=== PATIENT | male | born 1950 | race Caucasian/White ===

== ENCOUNTER 2016-06-16 10:40 | Emergency (ER) | payer MEDICARE, OTHER ==
--- NOTE | 2016-06-16 11:20 | ED ---
Upper Extremity HPI - General Chief Complaint: Extremity Injury, Upper Stated Complaint: Lt shoulder injury/[facility] Time Seen by Provider: 06/16/16 10:55 Source: patient, RN notes reviewed Mode of arrival: ambulatory Limitations: no limitations - History of Present Illness Initial Comments: 65-year-old male present emergency Department chief complaint left shoulder pain. Patient states that he was at work yesterday moving some heavy boxes felt a pop in his left shoulder. Patient states ever since then he is been unable to lift up his left arm. Any movement causes increased pain. Patient denies any paresthesias. Patient is right-hand dominant. Patient denies any neck pain. Place: work - Related Data Home Medications Medication Instructions Recorded Confirmed Metoprolol Tartrate [Lopressor] 25 mg PO BID 09/13/13 06/16/16 Ranitidine HCl [Zantac] 150 mg PO BID PRN 09/13/13 06/16/16 Lisinopril [Zestril] 10 mg PO DAILY 12/26/14 06/16/16 Budesonide/Formoterol Fumarate 2 puff INHALATION RT-BID 06/16/16 06/16/16 [Symbicort 160-4.5 Mcg Inhaler] Ibuprofen [Motrin] 400 mg PO Q6HR PRN 06/16/16 06/16/16 Previous Rx's Medication Instructions Recorded Clopidogrel [Plavix] 75 mg PO DAILY #30 tab 09/15/13 Isosorbide Mononitrate ER [Imdur] 60 mg PO DAILY #30 tab.er.24h 09/15/13 Nitroglycerin Sl Tabs [Nitrostat] 0.4 mg SUBLINGUAL Q5M PRN #0 tab 07/26/14 Hydrocodone/Acetaminophen [[place] 1 tab PO Q6HR PRN #15 tab 06/16/16 5-325] Allergies Allergy/AdvReac Type Severity Reaction Status Date / Time No Known Allergies Allergy Verified 06/16/16 11:02 Review of Systems ROS Statement: Those systems with pertinent positive or pertinent negative responses have been documented in the HPI. ROS Other: All systems not noted in ROS Statement are negative. Past Medical History Past Medical History: Chest Pain / Angina, COPD, Hyperlipidemia, Hypertension, Myocardial Infarction (MS), Skin Disorder Additional Past Medical History / Comment(s): psoriasis, arthritis, sob with activity Last Myocardial Infarction Date:: 2003 History of Any Multi-Drug Resistant Organisms: None Reported Past Surgical History: Heart Catheterization With Stent, Tonsillectomy Additional Past Surgical History / Comment(s): parathyroid gland removed Past Anesthesia/Blood Transfusion Reactions: No Reported Reaction Additional Past Anesthesia/Blood Transfusion Reaction / Comment(s): Pt recieved blood for post tonsillectomy bleed at age 12 yrs-no reaction. Date of Last Stent Placement:: 2003 Past Psychological History: No Psychological Hx Reported Additional Psychological History / Comment(s): Pt resides with his spouse. He is independent. He uses no assistive devices. He cannot walk long distances due to SOB. Pt drives. Smoking Status: Current every day smoker Past Alcohol Use History: None Reported Additional Past Alcohol Use History / Comment(s): Pt states he is trying to quit smoking. He started smoking at age 14yrs and was up to about 1 1/2 ppd. He is currently smoking less than a ppd. Past Drug Use History: None Reported - Past Family History Sister(s) Family Medical History: CVA/TIA Father Additional Family Medical History / Comment(s): Father had an enlarged heart. He at age 72 yrs. Mother Family Medical History: No Reported History Additional Family Medical History / Comment(s): Mother at age 82yrs. General Exam Limitations: no limitations General appearance: alert, in no apparent distress Respiratory exam: Present: normal lung sounds bilaterally. Absent: respiratory distress, wheezes, rales, rhonchi, stridor Cardiovascular Exam: Present: regular rate, normal rhythm, normal heart sounds. Absent: systolic murmur, diastolic murmur, rubs, gallop, clicks Extremities exam: Present: other (Left shoulder is some tenderness over the biceps tendon region patient is able to make full bicep with no abnormality. Patient has pain with extension of his left shoulder, abduction. 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 Absent: rash Course Vital Signs 06/16/16 10:49 Temperature 97 F L Pulse Rate 90 Respiratory 20 Rate Blood Pressure 184/96 O2 Sat by Pulse 93 L Oximetry Medical Decision Making - Medical Decision Making 65-year-old male presents emergency Department chief complaint of left shoulder pain. Patient had injury after moving, lifting boxes. Patient appears to have a left rotator cuff injury, left bicipital tendinitis. Patient be discharged follow-up with orthopedics. Disposition Clinical Impression: Injury of left rotator cuff, Biceps tendinitis Disposition: HOME SELF-CARE Condition: Stable Instructions: Rotator Cuff Injury (ED) Additional Instructions: Please return to the Emergency Department if symptoms worsen or any other concerns. Prescriptions: Hydrocodone/Acetaminophen [[place] 5-325] 1 tab PO Q6HR PRN #15 tab PRN Reason: Pain Referrals: Jessica Murray MD [Primary Care Provider] - 1-2 days Lester Youngblood DO [Doctor of Osteopathic Medicine] - 1-2 days Time of Disposition: 11:45
--- NOTE | 2016-06-16 11:31 | XR ---
Left shoulder HISTORY: Injury, pain 3 views of the left shoulder, comparison to CT angiogram of the chest 26 December 2014. Calcification is present along the distribution of the rotator cuff insertion near the level of the g reater tuberosity. Joint space loss present at the glenohumeral joint, some hypertrophic changes pres ent at the glenohumeral joint and acromioclavicular joint. Bone mineralization and alignment are main tained. Left lung apex as visualized is normal. Interstitial lung disease noted. Impression: Osteoarthritis, findings suggest calcific tendinitis. Additional findings above.
[2016-06-16 11:58] VITALS: BP 120/63; PULSE 95; RESP 16; TEMP 97.8
== END 2016-06-16 11:56 | disposition home or self-care (01) ==
LOC: EC 10:40
DX: S46.002A Unspecified injury of muscle(s) and tendon(s) of the rotator cuff of left shoulder, initial encounter (principal); M75.22 Bicipital tendinitis, left shoulder; X50.0XXA Overexertion from strenuous movement or load, initial encounter; Y99.0 Civilian activity done for income or pay; I10 Essential (primary) hypertension; E78.5 Hyperlipidemia, unspecified; J44.9 Chronic obstructive pulmonary disease, unspecified; I20.9 Angina pectoris, unspecified; F17.200 Nicotine dependence, unspecified, uncomplicated; I25.2 Old myocardial infarction; Z95.5 Presence of coronary angioplasty implant and graft; Z79.51 Long term (current) use of inhaled steroids; Z79.02 Long term (current) use of antithrombotics/antiplatelets; Z79.899 Other long term (current) drug therapy
CPT/HCPCS: 99283

== ENCOUNTER 2017-08-05 14:32 | Inpatient (IN) | payer MEDICARE ==
[2017-08-05] MEDS ORDERED: HEPARIN SODIUM,PORCINE 5,000 UNIT/ML 1 ML VIAL IV ONE (21:16)
[2017-08-05] MEDS ORDERED: HEPARIN SODIUM,PORCINE 5,000 UNIT/ML 1 ML VIAL IV PRN (21:16)
[2017-08-05] MEDS ORDERED: HEPARIN SOD,PORK IN 0.45% NACL 25,000 UNIT in 0.45% NACL 1 500ML.BAG IV SCH (21:30)
[2017-08-05 21:40] LABS: Glucose,Whole Blood 119 mg/dL (75-99)
[2017-08-05] MEDS ORDERED: ACETAMINOPHEN TAB 325 MG TAB PO PRN (21:42)
[2017-08-05] MEDS ORDERED: IPRATROPIUM-ALBUTEROL 3 ML NEB INHALATION PRN (21:42)
[2017-08-05] MEDS ORDERED: NITROGLYCERIN SL TABS 0.4 MG TAB SUBLINGUAL PRN (21:46)
[2017-08-05 21:57] VITALS: RESP 18
[2017-08-05 22:01] LABS: HCT 42.4 % (39.0-53.0); HGB 13.5 gm/dL (13.0-17.5); MCH 27.8 pg (25.0-35.0); MCHC 31.9 g/dL (31.0-37.0); Mean Platelet Volume 8.8; Platelet Count 152 k/uL (150-450); RBC 4.87 m/uL (4.30-5.90); RDW 15.6 % (11.5-15.5); WBC 11.7 k/uL (3.8-10.6)
[2017-08-05 22:07] LABS: INR 1.1 (<1.2); Partial Thromboplastin Time 24.4 sec (22.0-30.0); Prothrombin Time 10.8 sec (9.0-12.0)
[2017-08-05 22:12] LABS: Calcium 8.9 mg/dL (8.4-10.2); Potassium 4.5 mmol/L (3.5-5.1)
[2017-08-06 04:07] LABS: Basophils % (A) 0 %; Eosinophils % (A) 0 %; HCT 43.7 % (39.0-53.0); HGB 13.7 gm/dL (13.0-17.5); Lymphocytes # (A) 1.1 k/uL (1.0-4.8); Lymphocytes % (A) 10 %; MCH 27.3 pg (25.0-35.0); MCHC 31.5 g/dL (31.0-37.0); MCV 86.6 fL (80.0-100.0); Mean Platelet Volume 8.7; Monocytes # (A) 0.6 k/uL (0-1.0); Monocytes % (A) 5 %; Neutrophils # (A) 9.4 k/uL (1.3-7.7); Neutrophils % (A) 84 %; Platelet Count 154 k/uL (150-450); RBC 5.04 m/uL (4.30-5.90); RDW 15.5 % (11.5-15.5); WBC 11.2 k/uL (3.8-10.6)
[2017-08-06 04:35] LABS: Anion Gap 12 mmol/L; Blood Urea Nitrogen 32 mg/dL (9-20); Calcium 8.8 mg/dL (8.4-10.2); Carbon Dioxide 21 mmol/L (22-30); Chloride 108 mmol/L (98-107); Glucose 105 mg/dL (74-99); Potassium 4.2 mmol/L (3.5-5.1); Sodium 141 mmol/L (137-145)
[2017-08-06] MEDS: SODIUM CHLORIDE 0.9% 1,000 ML IV SCH ×4 (06:39→21:50)
[2017-08-06] MEDS: INSULIN ASPART 100 UNIT/ML 1 ML 10 ML VIAL SQ SCH ×5 (06:40→21:49)
[2017-08-06] MEDS: ATORVASTATIN 40 MG TAB PO SCH ×2 (06:40→06:45)
[2017-08-06] MEDS: METOPROLOL TARTRATE 25 MG TAB PO SCH ×3 (06:40→21:49)
[2017-08-06] MEDS: NICOTINE 21MG/24HR PATCH TRANSDERM SCH ×2 (06:41→21:50)
[2017-08-06] MEDS: methylPREDNISolone SOD SUCCI 40 MG/ML 1 ML VIAL IV SCH ×3 (06:42→15:58)
[2017-08-06] MEDS: ASPIRIN 81 MG PO SCH (06:42)
[2017-08-06] MEDS: CLOPIDOGREL 75 MG TAB PO SCH (06:43)
[2017-08-06] MEDS: LISINOPRIL 10 MG TAB PO SCH (06:46)
[2017-08-06] MEDS: FAMOTIDINE 20 MG TAB PO SCH (06:46)
[2017-08-06 07:01] LABS: Glucose,Whole Blood 98 mg/dL (75-99)
[2017-08-06] MEDS: ISOSORBIDE MONONITRATE ER 60 MG TAB.ER.24H PO SCH (08:20)
[2017-08-06] MEDS: SYMBICORT 80-4.5 MCG INHALER INHALATION SCH ×2 (08:21→20:59)
[2017-08-06] MEDS ORDERED: MIDAZOLAM 2 MG/2 ML VIAL ONE (10:24)
[2017-08-06] MEDS ORDERED: LIDOCAINE 2% INJ 20 MG/ML (20 ML MDV) ONE (10:25)
[2017-08-06] MEDS ORDERED: VERAPAMIL 2.5 MG/ML 2 ML AMP ONE (10:25)
[2017-08-06] MEDS ORDERED: diphenhydrAMINE 50 MG/ML 1 ML VIAL ONE (10:56)
[2017-08-06] MEDS ORDERED: fentaNYL (PF) 50 MCG/ML 2 ML AMP ONE (10:56)
[2017-08-06] MEDS ORDERED: IV FLUID CONTINUATION 1,000 ML IV ONE (11:01)
[2017-08-06] MEDS ORDERED: diphenhydrAMINE 50 MG/ML 1 ML VIAL IVP ONE (11:10)
[2017-08-06] MEDS ORDERED: fentaNYL (PF) 50 MCG/ML 2 ML AMP IV ONE (11:10)
[2017-08-06] MEDS ORDERED: LIDOCAINE 2% INJ 20 MG/ML SQ ONE (11:14)
[2017-08-06] MEDS ORDERED: VERAPAMIL SYRINGE (5 MG/10 ML) INTRAARTER ONE (11:22)
[2017-08-06] MEDS ORDERED: BIVALIRUDIN BOLUS 250 MG/50 ML IV ONE (11:30)
[2017-08-06] MEDS ORDERED: BIVALIRUDIN 250 MG in SODIUM CHLORIDE 0.9% 50 ML IV ONE ×2 (11:33→12:16)
[2017-08-06] MEDS ORDERED: MORPHINE SULF 5MG/10ML VL ONE (11:48)
[2017-08-06] MEDS ORDERED: MORPHINE SULF 5MG/10ML VL IV ONE (11:52)
[2017-08-06] MEDS ORDERED: FUROSEMIDE 10 MG/ML 4 ML VIAL ONE (12:06)
[2017-08-06] MEDS ORDERED: FUROSEMIDE 10 MG/ML 4 ML VIAL IV ONE ×2 (12:08)
[2017-08-06] MEDS: NITROGLYCERIN 1000MCG/10ML SYRINGE INTRACORON ONE ×2 (12:30→12:33)
[2017-08-06] MEDS ORDERED: IOPAMIDOL-370 125ML BTL INJ ONE (12:36)
[2017-08-06] MEDS ORDERED: MAG HYDROX/AL HYDROX/SIMETH 30 ML CUP PO PRN (12:56)
[2017-08-06] MEDS ORDERED: ZOLPIDEM 5 MG TAB PO PRN (12:56)
[2017-08-06] MEDS ORDERED: NITROGLYCERIN SL TABS 0.4 MG TAB SUBLINGUAL PRN (12:56)
[2017-08-06] MEDS ORDERED: ATROPINE SULFATE 0.1 MG/ML 10ML SYRINGE IV PRN (12:56)
[2017-08-06] MEDS ORDERED: RX INFO: IV CONTRAST WAS GIVEN 1 EACH MISC MISCELLANE PRN (12:56)
[2017-08-06] MEDS ORDERED: ATORVASTATIN 40 MG TAB PO SCH (12:59)
[2017-08-06] MEDS ORDERED: SODIUM CHLORIDE 0.9% 1,000 ML IV SCH (13:00)
[2017-08-06 13:03] LABS: Hemoglobin A1C 5.6 % (4.0-6.0)
[2017-08-06 14:34] VITALS: BMI 32.8
--- NOTE | 2017-08-06 15:53 | PTCA ---
PERCUTANEOUSTRANS CORORONARY ANGIOGRAPHY Mr. Mccloud is a 67-year-old male with known history of coronary artery disease, history of noncompliance and chronic tobacco use, who presented with non ST-segment elevation myocardial infarction, underwent cardiac catheterization, was found to have critical stenosis involving the mid right coronary artery. In view of that, recommendation was made regarding angioplasty and stenting. The procedures, risks and complication were discussed with the patient, who is in full understanding and agreement. PROCEDURE: A 6-Portuguese FR4 guiding catheter was introduced system. After cannulating the right coronary ostium and a 0.014 balance medium weight J-wire was advanced across the lesion and positioned distally. Following that, a 2.5 x 8 mm Trek balloon was advanced and multiple inflations at maximum of 8 atmospheres were done. Following that, the balloon was removed and attempt to advance a 3.0 x 12 mm Xience Alpine stent were unsuccessful. That stent was removed and a GuideLiner was advanced and attempt to advance the 3.0 x 12 mm Xience, 3.0 x 8 mm Xience, 3.0 x 8 vision and a 2.5 x 12 PROMUS stent were unsuccessful. At that point, the GuideLiner was removed and a 0.014 whisper J-wire was advanced next to the first one in a william fashion with a corsair catheter. After advancing the corsair across the lesion, the wire was exchanged to a 0.014 mailman wire and after removing the corsair, attempt to advance the 3.0 x 12 Xience and a 3.0 x 8 Xience over the BMW were unsuccessful. Subsequently, the 3.0 x 8 mm Xience Alpine was advanced over the Mailman and was able to cross the lesion. At that point, the stent was deployed and postdilated at 14 atmospheres. After the last inflation, after appropriate wait, the balloon and the guidewire were withdrawn back in the guiding catheter. Images were obtained and repeated. Those images revealed stable successful stenting. At that point, the guiding catheter, the balloon and guidewire were removed. The sheath was removed. Hemostasis was obtained with deployment of a TR band. There was no immediate complication. Patient is returned to his room in stable condition. Of note, the patient had chest discomfort during the procedure that resolved at the end of the procedure. He received Angiomax per protocol. RESULTS: Successful stenting of the mid right coronary artery in a very calcified and tortuous segment with reduction of stenosis from 99% to 0%. RECOMMENDATION: Patient will be continued on aspirin, Plavix, beta blockers and statin. The importance of compliance and smoking cessation were discussed with the patient and his family who are in full understanding and agreement. Duration of procedure is 88 minutes. DONTE / QASIMN: [id number] /
--- NOTE | 2017-08-06 16:02 | CC ---
CARDIAC CATHETERIZATION REPORT Mr. Mccloud is a 67-year-old male with a known history of coronary artery disease, status post multiple percutaneous revascularizations to the right coronary artery, most recently in 2015, noncompliance, who was not seen in the office since that time, chronic tobacco user who stopped all his medication and presented to [facility] with symptoms of chest discomfort and evidence of non [id number] myocardial infarction. In view of that, recommendation was made regarding cardiac catheterization. The procedure, its risks and complications were discussed with the patient, who was in full understanding and agreement. PROCEDURE: Patient was brought to the laborer [place] in a fasting, semi-sedated state after receiving fentanyl and Benadryl and achieving a moderate conscious sedated state. Using Xylocaine anesthesia and Seldinger technique, a 6-Gibraltarian sheath was introduced in the left radial artery. Selective right and left angiography was performed using 5-Gibraltarian 4 bend right and left Jody catheters. Multiple views were taken of the coronary arteries, including the hemiaxial view. Following that, catheters were removed. Images were reviewed. FINDINGS: 1. LEFT MAIN: This is a large-sized vessel giving rise to a left anterior descending artery. 2. LEFT ANTERIOR DESCENDING ARTERY: This is a large-sized vessel reaching toward the apex with a wrap around the apex segment giving rise to a large diagonal branch. Left anterior descending artery as well as its branches have no evidence of obstructive coronary artery disease. 3. 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 The left circumflex as well as its branches have no evidence of high-grade stenosis. 4. RIGHT CORONARY ARTERY: This is a large dominant vessel bifurcating into PDA, posterolateral segment and branches, heavily calcified in the mid segment. Proximally it has mild disease of 20% to 30%. In the mid segment at the takeoff of the acute marginal there is a 99% stenosis and a very acute bend distally. The stented segment is patent with evidence of in-stent restenosis of 50%. The rest of the vessel has no high-degree stenosis. 5. LEFT VENTRICULOGRAM: Left ventriculogram was not performed. CONCLUSION: 1. Severe stenosis in the mid right coronary artery. 2. Moderate in-stent restenosis in the distal right coronary artery. 3. 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 RECOMMENDATION: In view of findings and anatomy, I have recommended proceeding with angioplasty and stenting. The procedure, its risks and complications were discussed with the patient, who is in full understanding and agreement. MMODL / IJN: [id number] /
--- NOTE | 2017-08-06 16:12 | P.HPIM ---
History of Present Illness H&P Date: 08/06/17 Chief Complaint: Chest pain transferred from [facility] This is a pleasant 67-year-old Jamin patient of Dr. Seth Sanchez, with underlying history of CAD with prior RI prior angioplasty and cardiac stents in 2014, elevated creatinine, noncompliance medications for at least a year., tobacco dependency, COPD, hypertension, hyperlipidemia, status post AAA repair transferred from [facility] secondary to acute non STEMI. He was seen by Dr. GEO freitas at that time, and recommended a cardiac cath and was subsequently transferred. He was treated at the other hospital. COPD exacerbation and tracheo bronchitis patient is currently a smoker, there is no O2 requirements at home. creatinine is elevated on admission at 1.3, patient required hydration in preparation for the current cardiac cath,, the peak troponin was 0.6, he also has elevated blood pressure as the patient missed several of his home maintenance medications for several months. Cardiac cath performed today, patient required 2 cardiac stents left radial access, formal report is currently pending. Saline is refusing for contrast prophylaxis, Solu-Medrol infusing at 40 mg every 8 hours, patient's doing well without any chest discomfort, no shortness of breath, no palpitations no lightheadedness, dizziness, Review of Systems Constitutional: Reports as per HPI, Denies anorexia, Denies chills, Denies chronic headaches, Denies chronic pain, Denies daytime sleepiness, Denies fatigue, Denies fever, Denies lethargy, Denies malaise, Denies night sweats, Denies poor appetite, Denies sweats, Denies weakness, Denies weight gain, Denies weight loss Ears, nose, mouth and throat: Reports as per HPI, Denies ant. neck pain, Denies bleeding gums, Denies dental pain, Denies dysphagia, Denies epistaxis, Denies headache, Denies hoarseness, Denies mouth pain, Denies nasal congestion, Denies nasal discharge, Denies neck fullness/pressure, Denies neck lump, Denies nose pain, Denies odynophagia, Denies post-nasal drip, Denies sinus pain, Denies sinus pressure, Denies swelling in mouth, Denies swelling in throat, Denies sore throat, Denies vertigo, Denies voice changes Cardiovascular: Reports as per HPI, Reports chest pain, Reports dyspnea on exertion, Reports shortness of breath, Denies claudication, Denies decreased exercise tolerance, Denies edema, Denies high blood pressure, Denies irregular heart beat, Denies leg edema, Denies lightheadedness, Denies orthopnea, Denies palpitations, Denies paroxysmal nocturnal dyspnea, Denies phlebitis, Denies rapid heart beat, Denies syncope Respiratory: Reports as per HPI, Reports cough, Reports dyspnea, Denies congestion, Denies cough with sputum, Denies excessive sputum, Denies hemoptysis , Denies home oxygen, Denies pain, Denies pain on inspiration, Denies pleurisy, Denies respiratory infections, Denies sleep apnea, Denies snoring, Denies wheezing Gastrointestinal: Reports as per HPI, Denies abdominal pain, Denies belching, Denies bloating, Denies BRBPR, Denies change in bowel habits, Denies coffee ground emesis, Denies constipation, Denies diarrhea, Denies dyspepsia, Denies early satiety, Denies excessive gas, Denies heartburn, Denies hematemesis, Denies hematochezia, Denies indigestion, Denies jaundice, Denies lactose intolerance, Denies loss of appetite, Denies melena, Denies nausea, Denies vomiting Integumentary: Reports as per HPI, Denies acne, Denies boils, Denies brittle nails, Denies change in hair/nails, Denies color changes, Denies darkening of skin, Denies depigmentation, Denies dryness, Denies foot/leg ulcers, Denies growths, Denies hirsutism, Denies lesions, Denies onychomycosis, Denies pruritus , Denies rash, Denies sores, Denies striae, Denies unusual bruising, Denies wounds Neurological: Reports as per HPI, Denies aphasia, Denies ataxia, Denies balance difficulties, Denies burning pain, Denies change in mentation, Denies change in smell/taste, Denies change in speech, Denies confusion, Denies convulsions, Denies double vision, Denies gait dysfunction, Denies head injury, Denies headaches, Denies hearing difficulties, Denies lack of coordination, Denies loss of vision, Denies memory loss, Denies migraines, Denies motor disturbance, Denies numbness, Denies paralysis, Denies paresthesias, Denies seizures, Denies sensory deficit, Denies spasticity, Denies syncope, Denies tic, Denies tingling , Denies transient paralysis, Denies tremors, Denies vertigo, Denies weakness, Denies visual changes Psychiatric: Reports as per HPI, Denies anhedonia, Denies anxiety, Denies anxiety attacks, Denies change in appetite, Denies change in libido, Denies change in sleep habits, Denies confusion, Denies depression, Denies difficulty concentrating, Denies disorientation, Denies hallucinations, Denies hopelessness , Denies hypersomnia, Denies insomnia, Denies irritability, Denies memory loss, Denies mood swings, Denies paranoia, Denies sadness/tearfulness, Denies sleep disturbances, Denies suicidal ideation Endocrine: Reports as per HPI, Denies cold intolerance, Denies deepening of the voice, Denies excessive sweating, Denies excessive thirst, Denies fatigue, Denies flushing, Denies heat intolerance, Denies high blood sugars, Denies increase in ring/shoe/hat size, Denies low blood sugars, Denies nocturia, Denies palpitations, Denies polydipsia, Denies polyphagia, Denies polyuria, Denies proptosis, Denies recent glucocorticoid use, Denies thyroid mass, Denies weight change Hematologic/Lymphatic: Reports as per HPI, Denies easy bleeding, Denies easy bruising, Denies lymphadenopathy, Denies lymphedema, Denies thrombophilia Allergic/Immunologic: Reports as per HPI, Denies allergic rhinitis, Denies anaphylaxis, Denies angioedema, Denies gluten intolerance, Denies persistent infections, Denies seasonal allergies, Denies urticaria, Denies wheezing Past Medical History Past Medical History: Chest Pain / Angina, COPD, Hyperlipidemia, Hypertension, Myocardial Infarction (RI), Skin Disorder Additional Past Medical History / Comment(s): psoriasis, arthritis, sob with activity Last Myocardial Infarction Date:: 2003 History of Any Multi-Drug Resistant Organisms: None Reported Past Surgical History: Heart Catheterization With Stent (Angioplasty with cardiac stent 2014, descending aortic aneurysm repair with stents), Tonsillectomy Additional Past Surgical History / Comment(s): parathyroid gland removed Past Anesthesia/Blood Transfusion Reactions: No Reported Reaction Additional Past Anesthesia/Blood Transfusion Reaction / Comment(s): Pt recieved blood for post tonsillectomy bleed at age 12 yrs-no reaction. Date of Last Stent Placement:: 2003 Past Psychological History: No Psychological Hx Reported Additional Psychological History / Comment(s): Pt resides with his spouse. He is independent. He uses no assistive devices. He cannot walk long distances due to SOB. Pt drives. Smoking Status: Current every day smoker (One pack per day since his teenage years) Past Alcohol Use History: None Reported Additional Past Alcohol Use History / Comment(s): Pt states he is trying to quit smoking. He started smoking at age 14yrs and was up to about 1 1/2 ppd. He is currently smoking less than a ppd. Past Drug Use History: None Reported - Past Family History Sister(s) Family Medical History: CVA/TIA Additional Family Medical History / Comment(s): Mother at 92 secondary to CAD, mother 72, CAD 2 sisters one from CVA, has COPD, one sister alive , with CVA 2 brothers one from COPD, 1 alive with COPD and problems from MVA, 2 daughters 1 with cardiac arrhythmia Father Additional Family Medical History / Comment(s): Father had an enlarged heart. He at age 72 yrs. Mother Family Medical History: No Reported History Additional Family Medical History / Comment(s): Mother at age 82yrs. Medications and Allergies Home Medications Medication Instructions Recorded Confirmed Type Ranitidine HCl [Zantac] 150 mg PO BID PRN 09/13/13 08/05/17 History Nitroglycerin Sl Tabs [Nitrostat] 0.4 mg SUBLINGUAL Q5M PRN #0 tab 07/26/14 Rx Budesonide/Formoterol Fumarate 2 puff INHALATION RT-BID 06/16/16 08/05/17 History [Symbicort 160-4.5 Mcg Inhaler] Albuterol Inhaler [Ventolin Hfa 2 puff INHALATION RT-Q6H PRN 08/05/17 08/05/17 History Inhaler] Aspirin EC [Ecotrin Low Dose] 81 mg PO DAILY 08/05/17 08/05/17 History Magnesium 200 mg PO DAILY 08/05/17 08/05/17 History Allergies Allergy/AdvReac Type Severity Reaction Status Date / Time No Known Allergies Allergy Verified 06/16/16 11:02 Physical Exam Vitals: Vital Signs Temp Pulse Pulse Resp BP Pulse Ox 08/06/17 14:11 134/85 08/06/17 13:41 133/78 08/06/17 13:26 132/79 08/06/17 13:11 66 18 156/85 95 08/06/17 08:00 97.1 F L 68 18 140/88 97 08/06/17 06:19 96.7 F L 74 18 163/76 99 08/06/17 04:00 96.8 F L 74 18 163/75 99 08/06/17 00:00 96.8 F L 89 18 171/87 94 L 08/05/17 21:03 97.8 F 82 18 148/77 96 Intake and Output 08/06/17 08/06/17 08/06/17 06:59 14:59 22:59 Intake Total 102.026 251 Output Total 525 Balance 102.026 -274 Intake: IV 251 Intake, IV Titration 102.026 Amount Heparin Sod,Pork in 0.45% 102.026 NaCl 25,000 unit In 0.45 % NaCl 1 500ml.bag @ 9.6 UNITS/KG/HR 19.94 mls/hr IV .Q24H CHAS Rx#: [id number] Output: Urine 525 Other: Voiding Method Toilet Urinal # Voids 1 Weight 103.9 kg 103.9 kg - Constitutional General appearance: cooperative, disheveled, no acute distress, obese - EENT Eyes: anicteric sclerae, EOMI, PERRLA, dentition normal, normal appearance ENT: NA/AT, normal oropharynx - Neck Neck: no lymphadenopathy, normal ROM, no other, no rigidity, no stridor, no thyromegaly - Respiratory Respiratory: bilateral: CTA, negative: diminished, dullness, rales - Cardiovascular Rhythm: regular Heart sounds: normal: S1, S2 Abnormal Heart Sounds: no systolic murmur, no diastolic murmur, no rub, no S3 Gallop, no S4 Gallop, no click, no other - Gastrointestinal General gastrointestinal: normal bowel sounds, soft - Integumentary Integumentary: decreased turgor, normal - Musculoskeletal Musculoskeletal: gait normal, strength equal bilaterally - Psychiatric Psychiatric: A&O x's 3, appropriate affect, intact judgment & insight Results CBC & Chem 7: 08/06/17 03:52 08/06/17 03:52 Labs: Abnormal Lab Results - Last 24 Hours (Table) 08/05/17 08/05/17 08/05/17 Range/Units 21:38 21:43 21:43 WBC 11.7 H (3.8-10.6) k/uL RDW 15.6 H (11.5-15.5) % Neutrophils # (1.3-7.7) k/uL APTT (22.0-30.0) sec Chloride (98-107) mmol/L Carbon Dioxide (22-30) mmol/L BUN 30 H (9-20) mg/dL Glucose 137 H (74-99) mg/dL POC Glucose (mg/dL) 119 H (75-99) mg/dL 08/06/17 08/06/17 08/06/17 Range/Units 03:52 03:52 03:56 WBC 11.2 H (3.8-10.6) k/uL RDW (11.5-15.5) % Neutrophils # 9.4 H (1.3-7.7) k/uL APTT 31.3 H (22.0-30.0) sec Chloride 108 H (98-107) mmol/L Carbon Dioxide 21 L (22-30) mmol/L BUN 32 H (9-20) mg/dL Glucose 105 H (74-99) mg/dL POC Glucose (mg/dL) (75-99) mg/dL Laboratory Results WBC 11.2 k/uL (3.8-10.6) H 08/06/17 03:52 RBC 5.04 m/uL (4.30-5.90) 08/06/17 03:52 Hgb 13.7 gm/dL (13.0-17.5) 08/06/17 03:52 Hct 43.7 % (39.0-53.0) 08/06/17 03:52 MCV 86.6 fL (80.0-100.0) 08/06/17 03:52 MCH 27.3 pg (25.0-35.0) 08/06/17 03:52 MCHC 31.5 g/dL (31.0-37.0) 08/06/17 03:52 RDW 15.5 % (11.5-15.5) 08/06/17 03:52 Plt Count 154 k/uL (150-450) 08/06/17 03:52 Neutrophils % 84 % 08/06/17 03:52 Lymphocytes % 10 % 08/06/17 03:52 Monocytes % 5 % 08/06/17 03:52 Eosinophils % 0 % 08/06/17 03:52 Basophils % 0 % 08/06/17 03:52 Neutrophils # 9.4 k/uL (1.3-7.7) H 08/06/17 03:52 Lymphocytes # 1.1 k/uL (1.0-4.8) 08/06/17 03:52 Monocytes # 0.6 k/uL (0-1.0) 08/06/17 03:52 Eosinophils # 0.0 k/uL (0-0.7) 08/06/17 03:52 Basophils # 0.0 k/uL (0-0.2) 08/06/17 03:52 PT 10.8 sec (9.0-12.0) 08/05/17 21:39 INR 1.1 (<1.2) 08/05/17 21:39 APTT 31.3 sec (22.0-30.0) H 08/06/17 03:56 Sodium 141 mmol/L (137-145) 08/06/17 03:52 Potassium 4.2 mmol/L (3.5-5.1) 08/06/17 03:52 Chloride 108 mmol/L (98-107) H 08/06/17 03:52 Carbon Dioxide 21 mmol/L (22-30) L 08/06/17 03:52 Anion Gap 12 mmol/L 08/06/17 03:52 BUN 32 mg/dL (9-20) H 08/06/17 03:52 Creatinine 0.93 mg/dL (0.66-1.25) 08/06/17 03:52 Est GFR (CKD-EPI)AfAm >90 (>60 ml/min/1.73 sqM) 08/06/17 03:52 Est GFR (CKD-EPI)NonAf 84 (>60 ml/min/1.73 sqM) 08/06/17 03:52 Glucose 105 mg/dL (74-99) H 08/06/17 03:52 POC Glucose (mg/dL) 98 mg/dL (75-99) 08/06/17 06:41 POC Glu Configuration Management Specialist Slime Steele 08/06/17 06:[address] Glu mg/dL 114 08/06/17 03:52 Hemoglobin A1c 5.6 % (4.0-6.0) 08/06/17 03:52 Calcium 8.8 mg/dL (8.4-10.2) 08/06/17 03:52 NT-Pro-B Natriuret Pep 1680 pg/mL 08/06/17 03:52 Thrombosis Risk Factor Assmnt - DVT/VTE Prophylaxis DVT/VTE Prophylaxis: Pharmacologic Prophylaxis ordered - Choose All That Apply Any of the Below Risk Factors Present?: Yes Each Factor Represents 1 point: Oral contraceptives or hormone replacement therapy Other Risk Factors: Yes Each Risk Factor Represents 2 Points: Age 61-74 years Thrombosis Risk Factor Assessment Total Risk Factor Score: 3 Thrombosis Risk Factor Assessment Level: Moderate Risk Assessment and Plan Plan: 1. Acute NSTEMI with known history of noncompliance and CAD cardiac stents in the past, required cardiac catheterization on 08/06/2017 today, formal reports of following cardiac cath. Patient's continue on Imdur 60 mg daily, Zestril 10 mg daily, Lopressor 25 mg twice a day, smoking cessation with nicotine, Lipitor 80 mg daily, Plavix 75 mg daily and aspirin 81 mg daily. --Echocardiogram performed 2017 at [facility] shows EF 55 -60%, left atrium borderline the dilated, no wall motion abnormality, systolic function is normal, aortic valve sclerosis without stenosis, no pedal physician , pulmonary problems normal, tricuspid valve normal --Computed tomography scan performed [facility], 08/04/2017, COPD with peripheral bilateral upper lung fibrosis, no suspicious acute pulmonary processes, coronary artery calcification present, no suspicious validation of the thoracic aorta no dissection --Computed tomography scan abdomen with angiogram, [facility] shows m "near complete occlusion right external iliac artery, severe stenosis of the internal iliac artery but it is still patent, complete occlusion of the origin of the left common iliac with no flow seen in the left internal/external iliac arteries 2. COPD with acute exacerbation, improving, on nebulized albuterol Atrovent, tapering off Solu-Medrol 40 mg every 8 hours, we'll switch to oral prednisone in the morning and 40 mg, oral antibiotic zithromax for tracheobronchtiis 3. Known CAD, with prior angioplasty and cardiac stents in the past 4 Severe PAD, iliac vessels bilaterally, see above dictation, patient would need further investigations for this, either to be done by the cardiology service, however this could be deferred to outpatient to vascular surgery currently without any significant claudication 5. Hyperlipidemia, Lipitor 80, left LDL 73 triglyceride 104 08/04/2017 6 Hypertension currently on Lopressor 25 mg twice a day, and Imdur 60 mg daily, lisinopril 10 mg daily, Tobacco dependency, 7 Acute kidney failure most likely secondary to ATN, underlying CK D stage II after hydration 8 Impaired random blood sugars, A1c 5.6 9 BMI of 32, white cell modification 10 History of AAA repair. Cardiac dissection from computed tomography scan performed July 2017 11. Noncompliance mentioned regimen, patient is now more conscientious about medication compliance and quitting permanently his tobacco dependency 12. GI prophylaxis Pepcid 13. DVT prophylaxis heparin drip discontinued, will start Lovenox in the morning and 40 mg daily
[2017-08-06] MEDS ORDERED: DOCUSATE 100 MG CAP PO PRN (16:13)
[2017-08-06 16:47] LABS: Glucose,Whole Blood 90 mg/dL (75-99)
[2017-08-06] MEDS: CEPHALEXIN 500 MG CAP PO SCH ×2 (17:03→21:50)
[2017-08-06 20:54] LABS: Glucose,Whole Blood 163 mg/dL (75-99)
[2017-08-07 06:03] LABS: Glucose,Whole Blood 98 mg/dL (75-99)
[2017-08-07 06:56] LABS: Calcium 8.8 mg/dL (8.4-10.2); Potassium 4.6 mmol/L (3.5-5.1)
[2017-08-07] MEDS: SODIUM CHLORIDE 0.9% 1,000 ML IV SCH (07:01)
[2017-08-07] MEDS: INSULIN ASPART 100 UNIT/ML 1 ML 10 ML VIAL SQ SCH ×2 (07:01→12:05)
[2017-08-07] MEDS: ASPIRIN 81 MG PO SCH (08:26)
[2017-08-07] MEDS: CLOPIDOGREL 75 MG TAB PO SCH (08:26)
[2017-08-07] MEDS: CEPHALEXIN 500 MG CAP PO SCH (08:26)
[2017-08-07] MEDS: ISOSORBIDE MONONITRATE ER 60 MG TAB.ER.24H PO SCH (08:27)
[2017-08-07] MEDS: LISINOPRIL 10 MG TAB PO SCH (08:27)
[2017-08-07] MEDS: METOPROLOL TARTRATE 25 MG TAB PO SCH (08:27)
[2017-08-07] MEDS: FAMOTIDINE 20 MG TAB PO SCH (08:27)
[2017-08-07] MEDS: SYMBICORT 80-4.5 MCG INHALER INHALATION SCH (08:55)
[2017-08-07] MEDS ORDERED: predniSONE 20 MG TAB PO SCH (09:00)
[2017-08-07] MEDS ORDERED: ENOXAPARIN 40 MG/0.4 ML SYRINGE SQ SCH (09:00)
--- NOTE | 2017-08-07 11:13 | P.DS ---
Providers Date of admission: 08/05/17 20:53 Attending physician: Joann Mitchell Consults: 08/05/17 21:17 Consult Physician Routine Consulting Provider: Fabiola Ortiz Consult Reason/Comments: heart cath Do you want consulting provider notified?: Yes Placement Type Exists?: Yes 08/06/17 12:56 Consult Physician Routine Consulting Provider: [facility] Consult Reason/Comments: Post Interventional patient Do you want consulting provider notified?: Already Contacted Primary care physician: Joannbrad Mitchell [facility] Course: This is 67 years old male who presented to the hospital with chest pain patient was evaluated by cardiology and cardiac catheterization was done which showed 99% stenosis to the RCA patient received drug-eluting stent to RCA and was started on aspirin and Plavix and statin and other cardioprotective medication. 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 and need to follow-up with primary care physician in 3 days patient felt stable from the medical standpoint and was discharged home to follow-up as above Plan - Discharge Summary New Discharge Prescriptions: New Aspirin 81 mg PO DAILY chew Atorvastatin [Lipitor] 80 mg PO DAILY #30 tab Clopidogrel [Plavix] 75 mg PO DAILY #30 tab Isosorbide Mononitrate ER [Imdur] 60 mg PO DAILY #30 tab.er.24h Lisinopril [Zestril] 10 mg PO DAILY #30 tab Metoprolol Tartrate [Lopressor] 25 mg PO BID #60 tab Nicotine 21Mg/24Hr Patch [Habitrol] 1 patch TRANSDERM HS #15 patch Continue Ranitidine HCl [Zantac] 150 mg PO BID PRN PRN Reason: Heartburn Nitroglycerin Sl Tabs [Nitrostat] 0.4 mg SUBLINGUAL Q5M PRN #0 tab PRN Reason: Chest Pain Budesonide/Formoterol Fumarate [Symbicort 160-4.5 Mcg Inhaler] 2 puff INHALATION RT-BID Magnesium 200 mg PO DAILY Aspirin EC [Ecotrin Low Dose] 81 mg PO DAILY Albuterol Inhaler [Ventolin Hfa Inhaler] 2 puff INHALATION RT-Q6H PRN PRN Reason: Shortness Of Breath Discharge Medication List Ranitidine HCl [Zantac] 150 mg PO BID PRN 09/13/13 [History] Nitroglycerin Sl Tabs [Nitrostat] 0.4 mg SUBLINGUAL Q5M PRN #0 tab 07/26/14 [Rx] Budesonide/Formoterol Fumarate [Symbicort 160-4.5 Mcg Inhaler] 2 puff INHALATION RT-BID 06/16/16 [History] Albuterol Inhaler [Ventolin Hfa Inhaler] 2 puff INHALATION RT-Q6H PRN 08/05/17 [ History] Aspirin EC [Ecotrin Low Dose] 81 mg PO DAILY 08/05/17 [History] Magnesium 200 mg PO DAILY 08/05/17 [History] Aspirin 81 mg PO DAILY chew 08/07/17 [Rx] Atorvastatin [Lipitor] 80 mg PO DAILY #30 tab 08/07/17 [Rx] Clopidogrel [Plavix] 75 mg PO DAILY #30 tab 08/07/17 [Rx] Isosorbide Mononitrate ER [Imdur] 60 mg PO DAILY #30 tab.er.24h 08/07/17 [Rx] Lisinopril [Zestril] 10 mg PO DAILY #30 tab 08/07/17 [Rx] Metoprolol Tartrate [Lopressor] 25 mg PO BID #60 tab 08/07/17 [Rx] Nicotine 21Mg/24Hr Patch [Habitrol] 1 patch TRANSDERM HS #15 patch 08/07/17 [Rx] Follow up Appointment(s)/Referral(s): Joann Mitchell MD [Primary Care Provider] - 1 Week Discharge Disposition: HOME SELF-CARE
[2017-08-07 11:59] LABS: Glucose,Whole Blood 103 mg/dL (75-99)
[2017-08-07 12:33] VITALS: BP 139/82; PULSE 67; TEMP 97.1
--- NOTE | 2017-08-07 14:27 | PN ---
PROGRESS NOTE Mr. Mccloud is a 76-year-old male with a history of coronary artery disease, chronic tobacco use, noncompliance who presented with a non ST-segment elevation myocardial infarction, underwent cardiac catheterization, was found to have critical stenosis involving the mid right coronary artery in a calcified segment, underwent stenting of that vessel yesterday. He is doing well this morning. His breathing has been stable. He denies any dizziness or palpitation. No nausea. He is ambulating without difficulty. Continue on aspirin once a day, Lipitor 80 mg daily, Plavix 75 mg daily, isosorbide mononitrate 60 mg daily, lisinopril 10 mg daily, metoprolol tartrate 25 mg twice a day. PHYSICAL EXAMINATION: Blood pressure 139/80 with a heart rate in the 60s. LUNGS: No wheezes. HEART: Regular rate and rhythm. S1, S2. No S3. No rub. ABDOMEN: Soft and nontender. EXTREMITIES: No edema. Left radial pulse is intact. LAB DATA: Revealed BUN and creatinine 29 and 1.0, potassium 4.6. IMPRESSION: 1. Status post stenting of the right coronary artery, status post non ST-segment elevation myocardial infarction. 2. Hypertension. 3. Hyperlipidemia. 4. Chronic tobacco use. 5. Noncompliance. RECOMMENDATION: Patient should be able to be discharged home today and followed as an outpatient. MMODL / IJN: [id number] /
== END 2017-08-07 14:40 | disposition home or self-care (01) | DRG 246 ==
LOC: 6SEL 20:53
PROVIDERS: ADMIT Family Medicine; ATTEND Family Medicine
PROC: 027034Z Dilation of Coronary Artery, One Artery with Drug-eluting Intraluminal Device, Percutaneous Approach (ICD-10-PCS; principal; 2017-08-06 10:30)
PROC: 4A023N7 Measurement of Cardiac Sampling and Pressure, Left Heart, Percutaneous Approach (ICD-10-PCS; principal; 2017-08-06 10:30)
PROC: B2111ZZ Fluoroscopy of Multiple Coronary Arteries using Low Osmolar Contrast (ICD-10-PCS; principal; 2017-08-06 10:30)
DX: I21.4 Non-ST elevation (NSTEMI) myocardial infarction (principal); N17.0 Acute kidney failure with tubular necrosis; J44.0 Chronic obstructive pulmonary disease with (acute) lower respiratory infection; J44.1 Chronic obstructive pulmonary disease with (acute) exacerbation; Q24.5 Malformation of coronary vessels; J84.10 Pulmonary fibrosis, unspecified; E78.5 Hyperlipidemia, unspecified; I25.10 Atherosclerotic heart disease of native coronary artery without angina pectoris; I12.9 Hypertensive chronic kidney disease with stage 1 through stage 4 chronic kidney disease, or unspecified chronic kidney disease; N18.2 Chronic kidney disease, stage 2 (mild); F17.210 Nicotine dependence, cigarettes, uncomplicated; I25.2 Old myocardial infarction; I35.8 Other nonrheumatic aortic valve disorders; I70.8 Atherosclerosis of other arteries; J40 Bronchitis, not specified as acute or chronic; M19.90 Unspecified osteoarthritis, unspecified site; T50.906A Underdosing of unspecified drugs, medicaments and biological substances, initial encounter; L40.9 Psoriasis, unspecified; Y63.6 Underdosing and nonadministration of necessary drug, medicament or biological substance; I73.89 Other specified peripheral vascular diseases; Y83.1 Surgical operation with implant of artificial internal device as the cause of abnormal reaction of the patient, or of later complication, without mention of misadventure at the time of the procedure; Z68.32 Body mass index [BMI] 32.0-32.9, adult; Z79.02 Long term (current) use of antithrombotics/antiplatelets; Z79.51 Long term (current) use of inhaled steroids; Z79.82 Long term (current) use of aspirin; Z79.899 Other long term (current) drug therapy; Z82.3 Family history of stroke; Z82.49 Family history of ischemic heart disease and other diseases of the circulatory system; Z82.5 Family history of asthma and other chronic lower respiratory diseases; Z86.79 Personal history of other diseases of the circulatory system; Z91.19 Patient's noncompliance with other medical treatment and regimen; Z71.6 Tobacco abuse counseling; Z91.128 Patient's intentional underdosing of medication regimen for other reason
CPT/HCPCS: 80048; 83036; 83880; 85025; 85027; 85347; 85610; 85730; 93458; 94640

== ENCOUNTER 2021-07-25 09:26 | Observation (INO) | payer MEDICARE ==
[2021-07-25 10:14] LABS: Basophils % (A) 0 %; Eosinophils # (A) 0.1 k/uL (0-0.7); Eosinophils % (A) 1 %; Lymphocytes # (A) 1.4 k/uL (1.0-4.8); Lymphocytes % (A) 16 %; MCH 28.5 pg (25.0-35.0); MCV 89.1 fL (80.0-100.0); Monocytes # (A) 0.5 k/uL (0-1.0); Monocytes % (A) 6 %; Neutrophils # (A) 6.7 k/uL (1.3-7.7); Neutrophils % (A) 75 %; Platelet Count 151 k/uL (150-450); RBC 5.61 m/uL (4.30-5.90); RDW 14.9 % (11.5-15.5); WBC 8.9 k/uL (3.8-10.6)
[2021-07-25 10:28] LABS: Albumin 3.9 g/dL (3.5-5.0); Calcium 9.5 mg/dL (8.4-10.2); Magnesium 1.7 mg/dL (1.6-2.3); Total Bilirubin 0.6 mg/dL (0.2-1.3); Total Protein 7.1 g/dL (6.3-8.2)
[2021-07-25] MEDS ORDERED: methylPREDNISolone SOD SUCCI 125 MG/2 ML VIAL IV STA (10:28)
[2021-07-25] MEDS ORDERED: NITROGLYCERIN OINT 1 INCH/GM PACKET TOPICAL STA (10:28)
[2021-07-25] MEDS ORDERED: IPRATROPIUM-ALBUTEROL 3 ML NEB INHALATION STA (10:28)
[2021-07-25 10:33] LABS: Partial Thromboplastin Time 27.4 sec (22.0-30.0); Prothrombin Time 11.3 sec (9.0-12.0)
--- NOTE | 2021-07-25 10:43 | ED ---
Chest Pain HPI - General Chief Complaint: Chest Pain Stated Complaint: Chest pain Time Seen by Provider: 07/25/21 09:27 Source: patient, EMS, RN notes reviewed Mode of arrival: EMS Limitations: no limitations - History of Present Illness Initial Comments: This a 71-year-old male presents emergency from via EMS with chief complaint of chest pain. Patient states she does have significant cardiac history including 3 prior stents. Patient states pain started around 2:30 AM he states has been keeping him up he's had multiple episodes. He states it's severe left-sided chest pain does feel short of breath though he states that he's been having issues with his COPD. Patient was given breathing treatment which helped by EMS. Patient also given aspirin by EMS. Patient states took 4 nitro prior arrival which helped some but not as much as usual. Patient has a leg pain or leg swelling. He has no abdominal complaints. - Related Data Home Medications Medication Instructions Recorded Confirmed Atorvastatin [Lipitor] 40 mg PO DAILY 07/25/21 07/25/21 lisinopriL [Zestril] 10 mg PO BID 07/25/21 07/25/21 Previous Rx's Medication Instructions Recorded Nitroglycerin Sl Tabs [Nitrostat] 0.4 mg SUBLINGUAL Q5M PRN #0 tab 07/26/14 Isosorbide Mononitrate ER [Imdur] 60 mg PO DAILY #30 tab.er.24h 08/07/17 Metoprolol Tartrate [Lopressor] 25 mg PO BID #60 tab 08/07/17 Allergies Allergy/AdvReac Type Severity Reaction Status Date / Time No Known Allergies Allergy Verified 07/25/21 10:42 Review of Systems ROS Statement: Those systems with pertinent positive or pertinent negative responses have been documented in the HPI. ROS Other: All systems not noted in ROS Statement are negative. Past Medical History Past Medical History: Chest Pain / Angina, COPD, Hyperlipidemia, Hypertension, Myocardial Infarction ([place]), Skin Disorder Additional Past Medical History / Comment(s): psoriasis, arthritis, sob with activity Last Myocardial Infarction Date:: 2003 History of Any Multi-Drug Resistant Organisms: None Reported Past Surgical History: Heart Catheterization With Stent, Tonsillectomy Additional Past Surgical History / Comment(s): parathyroid gland removed Past Anesthesia/Blood Transfusion Reactions: No Reported Reaction Additional Past Anesthesia/Blood Transfusion Reaction / Comment(s): Pt recieved blood for post tonsillectomy bleed at age 12 yrs-no reaction. Date of Last Stent Placement:: 2003 Past Psychological History: No Psychological Hx Reported Smoking Status: Current every day smoker Past Alcohol Use History: None Reported Past Drug Use History: None Reported - Past Family History Sister(s) Family Medical History: CVA/TIA Additional Family Medical History / Comment(s): Mother at 92 secondary to CAD, mother 72, CAD 2 sisters one from CVA, has COPD, one sister alive, with CVA 2 brothers one from COPD, 1 alive with COPD and problems from MVA, 2 daughters 1 with cardiac arrhythmia Father Additional Family Medical History / Comment(s): Father had an enlarged heart. He at age 72 yrs. Mother Family Medical History: No Reported History Additional Family Medical History / Comment(s): Mother at age 82yrs. General Exam Limitations: no limitations General appearance: alert, in no apparent distress Head exam: Present: atraumatic, normocephalic, normal inspection Eye exam: Present: normal appearance, PERRL, EOMI. Absent: scleral icterus, conjunctival injection, periorbital swelling ENT exam: Present: normal exam, normal oropharynx, mucous membranes moist Neck exam: Present: normal inspection, full ROM. Absent: tenderness, meningismus, lymphadenopathy Respiratory exam: Present: wheezes. Absent: normal lung sounds bilaterally, respiratory distress, rales, rhonchi, stridor Cardiovascular Exam: Present: regular rate, normal rhythm, normal heart sounds. Absent: systolic murmur, diastolic murmur, rubs, gallop, clicks GI/Abdominal exam: Present: soft, normal bowel sounds. Absent: distended, tenderness, guarding, rebound, rigid Extremities exam: Absent: pedal edema Neurological exam: Present: alert, oriented X3 Course Vital Signs 07/25/21 07/25/21 09:28 09:44 Pulse Rate 96 Pulse Rate [ 102 H [facility] ] Respiratory 28 H Rate Blood Pressure 133/88 O2 Sat by Pulse 95 Oximetry - Reevaluation(s) Reevaluation #1: 07/25/21 10:41 I did contact cardiology. Patient will be evaluated. Chest Pain MDM - MDM I did discuss case with cardiology patient's case discussed with Dr. Quiles, patient will be taken to [facility] for cardiac cath. Case discussed with [facility]. Disposition Clinical Impression: Chest pain Disposition: ADMITTED IP TO THIS HOSP Condition: Fair Referrals: Melanie Oconnor MD [Primary Care Provider] - 1-2 days
[2021-07-25 10:50] LABS: Potassium 4.6 mmol/L (3.5-5.1)
[2021-07-25] MEDS ORDERED: HEPARIN SODIUM 1,000 UN/ML (10ML VL) IVP ONE (10:54)
[2021-07-25] MEDS ORDERED: ASPIRIN 325 MG TAB PO STA (10:55)
[2021-07-25] MEDS ORDERED: NITROGLYCERIN SL TABS 0.4 MG TAB SUBLINGUAL PRN ×2 (10:55→12:50)
[2021-07-25] MEDS ORDERED: ALPRAZolam 0.25 MG TAB PO PRN (10:55)
[2021-07-25] MEDS ORDERED: ATORVASTATIN 80 MG TAB PO STA (10:55)
[2021-07-25] MEDS ORDERED: ALPRAZolam 0.5 MG TAB PO PRN (10:55)
[2021-07-25] MEDS ORDERED: NALOXONE 0.4 MG/ML 1 ML VIAL IV PRN (10:58)
[2021-07-25] MEDS: SODIUM CHLORIDE 0.9% 1,000 ML in EMPTY BAG 1 BAG IV SCH ×2 (11:19→20:21)
--- NOTE | 2021-07-25 11:34 | P.CRDCN ---
History of Present Illness History of present illness: HISTORY OF PRESENTING ILLNESS This is a pleasant 71-year-old male past medical history significant for coronary artery disease status post PCI of the mid RCA in 2002, mid RCA in 2013, distal RCA 2014, and mid RCA in 2017, hypertension, dyslipidemia, peripheral vascular disease, chronic nicotine dependence. He follows in the office with Dr. Quiles. We have been asked to see in consultation for chest pain. Patient presents emergency department with worsening left-sided chest pain, radiating to his left arm and left neck. Chest pain started around 2:30AM, it was intermittent at first, relieved by nitro. Chest pain continued and worsened, he felt as if his sublingual nitro was not working. He had associated shortness of breath. In present to the emergency department for further evaluation. In the emergency department he continues to have chest pain. EKG was performed which revealed significant ST depression in V3-V6 and I aVL, new from prior EKGs. DIAGNOSTICS EKG reveals sinus tachycardia, heart rate 100, incomplete right bundle branch block, ST depression in leads V3 through V6, I and aVL. Laboratory reviewed, WBC 8.9, hemoglobin 16, platelets 151, first troponin was negative, sodium 141, potassium 4.6, BUN 26, serum creatinine 1.0, magnesium 1.7 Current home medications include lisinopril 10 mg twice a day, metoprolol titrate 25 mg twice a day, Imdur 60 mg daily, atorvastatin 40 mg daily Most recent echocardiogram 03/2021 in the office revealed an EF of 5560 p ercent, grade 2 diastolic dysfunction, mild mitral regurgitation, mild tricuspid regurgitation Most recent stress test was in the office 05/29/2021, Lexiscan, revealed fixed inferior and inferoseptal wall and normal gate SPECT images consistent with soft tissue attenuation. 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 Patient underwent PCI to the mid RCA REVIEW OF SYSTEMS At the time of my exam: CONSTITUTIONAL: Denies fever or chills. CARDIOVASCULAR: +chest pain, +shortness of breath, Denies orthopnea, PND or palpitations. RESPIRATORY: Denies cough. GASTROINTESTINAL: Denies abdominal pain, diarrhea, constipation, nausea or vomiting. MUSCULOSKELETAL: Denies myalgias. NEUROLOGIC: Denies numbness, tingling, headacbe or weakness. ENDOCRINE: Denies fatigue, weight change, polydipsia or polyurina. GENITOURINARY: Denies burning, hematuria or urgency with micturation. HEMATOLOGIC: Denies history of anemia or bleeding. PHYSICAL EXAMINATION Blood pressure 133/88, heart rate 102, oxygen saturation 75% on room air CONSTITUTIONAL: No apparent distress. HEENT: Head is normocephalic. Pupils are equal, round. Sclerae anicteric. Mucous membranes of the mouth are moist. No JVD. No carotid bruit. CHEST EXAMINATION: Lungs are diminished in the bases to auscultation. No chest wall tenderness is noted on palpation or with deep breathing. HEART EXAMINATION: Regular, tachycardic rate and rhythm. S1, S2 heard. No murmurs, gallops or rub. ABDOMEN: Soft, nontender. Positive bowel sounds. EXTREMITIES: 2+ peripheral pulses, no lower extremity edema and no calf tenderness. NEUROLOGIC EXAMINATION: Patient is awake, alert and oriented x3. ASSESSMENT Unstable angina Coronary artery disease status post PCI of the mid RCA in 2002, mid RCA in 2013, distal RCA 2014, and mid RCA in 2018 History of hypertension Dyslipidemia Peripheral vascular disease Chronic nicotine dependence PLAN -Obtain chest xray -Trend troponins -IV heparin 5,000unit bolus -IV fluids -Aspirin, statin, beta terence -Obtain 2D echocardiogram and doppler study to assess cardiac structure and function. -Keep NPO -Plan for cardiac catheterization with Dr. Quiles today. -I have discussed the risks, benefits and alternative therapies for the above- mentioned procedure and for both sedation/analgesia as well as necessary blood product administration, if indicated, as they pertain to this patient. The patient has indicated understanding and acceptance of the risks and procedures discussed. Questions have been answered appropriately and he is agreeable to move forward with the above-stated procedure. -Further recommendations based on clinical course Nurse practitioner note has been reviewed by physician. Signing provider agrees with the documented findings, assessment, and plan of care. Past Medical History Past Medical History: Chest Pain / Angina, COPD, Hyperlipidemia, Hypertension, Myocardial Infarction ([place]), Skin Disorder Additional Past Medical History / Comment(s): psoriasis, arthritis, sob with activity Last Myocardial Infarction Date:: 2003 History of Any Multi-Drug Resistant Organisms: None Reported Past Surgical History: Heart Catheterization With Stent, Tonsillectomy Additional Past Surgical History / Comment(s): parathyroid gland removed Past Anesthesia/Blood Transfusion Reactions: No Reported Reaction Additional Past Anesthesia/Blood Transfusion Reaction / Comment(s): Pt recieved blood for post tonsillectomy bleed at age 12 yrs-no reaction. Date of Last Stent Placement:: 2003 Past Psychological History: No Psychological Hx Reported Smoking Status: Current every day smoker Past Alcohol Use History: None Reported Past Drug Use History: None Reported - Past Family History Sister(s) Family Medical History: CVA/TIA Additional Family Medical History / Comment(s): Mother at 92 secondary to C AD, mother 72, CAD 2 sisters one from CVA, has COPD, one sister alive, with CVA 2 brothers one from COPD, 1 alive with COPD and problems from MVA, 2 daughters 1 with cardiac arrhythmia Father Additional Family Medical History / Comment(s): Father had an enlarged heart. He at age 72 yrs. Mother Family Medical History: No Reported History Additional Family Medical History / Comment(s): Mother at age 82yrs. Medications and Allergies Home Medications Medication Instructions Recorded Confirmed Type Nitroglycerin Sl Tabs [Nitrostat] 0.4 mg SUBLINGUAL Q5M PRN #0 tab 07/26/14 07/25/21 Rx Isosorbide Mononitrate ER [Imdur] 60 mg PO DAILY #30 tab.er.24h 08/07/17 07/25/21 Rx Metoprolol Tartrate [Lopressor] 25 mg PO BID #60 tab 08/07/17 07/25/21 Rx Atorvastatin [Lipitor] 40 mg PO DAILY 07/25/21 07/25/21 History lisinopriL [Zestril] 10 mg PO BID 07/25/21 07/25/21 History Allergies Allergy/AdvReac Type Severity Reaction Status Date / Time No Known Allergies Allergy Verified 07/25/21 10:42 Physical Exam Vitals: Vital Signs Pulse Pulse Resp BP Pulse Ox 07/25/21 10:53 77 07/25/21 09:44 102 H 133/88 07/25/21 09:28 96 28 H 95 Intake and Output 07/24/21 07/25/21 07/25/21 22:59 06:59 14:59 Other: Weight 102.058 kg Results 07/25/21 09:58 07/25/21 09:58 Cardiac Enzymes 07/25/21 07/25/21 Range/Units 09:58 09:58 AST 25 (17-59) U/L Troponin I <0.012 (0.000-0.034) ng/mL Coagulation 07/25/21 Range/Units 09:58 PT 11.3 (9.0-12.0) sec APTT 27.4 (22.0-30.0) sec CBC 07/25/21 Range/Units 09:58 WBC 8.9 (3.8-10.6) k/uL RBC 5.61 (4.30-5.90) m/uL Hgb 16.0 (13.0-17.5) gm/dL Hct 50.0 (39.0-53.0) % Plt Count 151 (150-450) k/uL Comprehensive Metabolic Panel 07/25/21 Range/Units 09:58 Sodium 141 (137-145) mmol/L Potassium 4.6 (3.5-5.1) mmol/L Chloride 106 (98-107) mmol/L Carbon Dioxide 25 (22-30) mmol/L BUN 26 H (9-20) mg/dL Creatinine 1.01 (0.66-1.25) mg/dL Glucose 121 H (74-99) mg/dL Calcium 9.5 (8.4-10.2) mg/dL AST 25 (17-59) U/L ALT 23 (4-49) U/L Alkaline Phosphatase 86 (38-126) U/L Total Protein 7.1 (6.3-8.2) g/dL Albumin 3.9 (3.5-5.0) g/dL Current Medications Generic Name Dose Route Start Last Admin Trade Name Freq PRN Reason Stop Dose Admin Alprazolam 0.25 mg 07/25/21 10:55 Alprazolam 0.25 Mg Tab PO Q6HR PRN Mild Anxiety Alprazolam 0.5 mg 07/25/21 10:55 Alprazolam 0.5 Mg Tab PO Q6HR PRN Moderate Anxiety Aspirin 81 mg 07/26/21 09:00 Aspirin 81 Mg PO DAILY [facility] Atorvastatin Calcium 40 mg 07/26/21 09:00 Atorvastatin 40 Mg Tab PO DAILY [facility] Heparin Sodium (Porcine) 10, 1,001 mls @ 999 mls/hr 07/26/21 07:00 000 unit/ Sodium Chloride IRRIGATION 07/26/21 23:00 ONCE PRN INTRA-OP Sodium Chloride 1,000 ml/ IV 1,000 mls @ 102.058 mls/hr 07/25/21 11:00 Solution IV .Q9H48M [facility] 1 ML/KG/HR Heparin Sodium (Porcine) 2,500 250.5 mls @ 250 mls/hr 07/26/21 07:00 unit/ Sodium Chloride IRRIGATION 07/26/21 23:00 ONCE PRN INTRA-OP Lisinopril 10 mg 07/26/21 09:00 Lisinopril 10 Mg Tab PO BID [facility] Metoprolol Tartrate 25 mg 07/25/21 21:00 Metoprolol Tartrate 25 Mg Tab PO BID [facility] Naloxone HCl 0.2 mg 07/25/21 10:58 Naloxone 0.4 Mg/Ml 1 Ml Vial IV Q2M PRN Opioid Reversal Nitroglycerin 0.4 mg 07/25/21 10:55 Nitroglycerin Sl Tabs 0.4 Mg Tab SUBLINGUAL Q5M PRN Chest Pain Intake and Output 07/24/21 07/25/21 07/25/21 22:59 06:59 14:59 Other: Weight 102.058 kg Patient Weight 07/26/21 06:59 Weight 102.058 kg 07/25/21 09:58 07/25/21 09:58
[2021-07-25] MEDS ORDERED: IV FLUID CONTINUATION 950 ML IV ONE (11:40)
[2021-07-25] MEDS ORDERED: fentaNYL (PF) 50 MCG/ML 2 ML AMP IV ONE (11:40)
[2021-07-25] MEDS ORDERED: LIDOCAINE 1% INJ 10MG/ML (20 ML MDV) SQ ONE ×3 (11:43→12:03)
[2021-07-25] MEDS: MIDAZOLAM 2 MG/2 ML VIAL IV ONE ×2 (11:52→12:29)
[2021-07-25] MEDS ORDERED: VERAPAMIL SYRINGE (5 MG/10 ML) INTRAARTER ONE (12:08)
[2021-07-25] MEDS ORDERED: HEPARIN SODIUM 1,000 UN/ML (10ML VL) IV ONE (12:16)
[2021-07-25] MEDS ORDERED: CLOPIDOGREL 75 MG TAB PO ONE (12:20)
[2021-07-25] MEDS ORDERED: IOPAMIDOL-370 125ML BTL INJ ONE (12:35)
[2021-07-25] MEDS ORDERED: NITROGLYCERIN 1000MCG/10ML SYRINGE INTRACORON ONE (12:36)
[2021-07-25] MEDS ORDERED: IOPAMIDOL-370 100ML BTL INJ ONE (12:43)
[2021-07-25] MEDS ORDERED: RX INFO: IV CONTRAST WAS GIVEN 1 EACH MISC MISCELLANE PRN (12:50)
[2021-07-25] MEDS ORDERED: ZOLPIDEM 5 MG TAB PO PRN (12:50)
[2021-07-25] MEDS ORDERED: ATROPINE SULFATE 0.1 MG/ML 10ML SYRINGE IV PRN (12:50)
[2021-07-25] MEDS ORDERED: MAG HYDROX/AL HYDROX/SIMETH 30 ML CUP PO PRN (12:50)
--- NOTE | 2021-07-25 12:57 | P.CARDCATH ---
Date of Procedure: 07/25/21 Description of Procedure: Cardiac Catheterization: The patient is a 71-year-old male with a known history of coronary disease multiple angioplasty and stenting of the RCA, chronic tobacco use who presented with symptoms of unstable angina with EKG changes. Recommendations were made regarding cardiac catheterization, the risks and the complications were discussed with the patient who is in full understanding and agreement. Procedure Description: Patient was brought to lab intern in fasting semi-sedated state after receiving Fentanyl and Benadryl achieiving moderate conscious sedated state. Using Xylocaine Anesthesia and Seldinger technique, attempt to cannulate the right radial artery were unsuccessful. At that time using Xylocaine anesthesia in the Seldinger technique a 6-Argentine sheath was introduced in the left radial artery . Subsequently, selective coronary angiography performed using a 5-Argentine 4 bend Jody catheter. Multiple views of the coronary artery including hemiaxial views were obtained. The 5-Argentine pigtail catheter was used to cross the aortic valve and LV EDP was calculated. Following that, catheter and sheath were removed. There was no immediate complications. Findings: Left main: This is a large size vessel giving rise to an LAD, the left main has no high-grade stenosis LAD: This is a large size vessel giving rise to 2 diagonal branch the LAD and its branches have no obstructive disease. 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 He is rise to moderately sized obtuse marginal branch have no high-grade stenosis RCA: This is a large size vessel, dominant, heavily calcified, bifurcating distally into PDA and PLV. The proximal RCA has a 40% plaque in the midsegment has a 99% stenosis there is in-stent restenosis in the mid distal segment of about 50% the rest of the vessel has no high-grade stenosis [Left] Ventriculogram: Was not performed Hemodynamics: There was no gradient across the aortic valve, LVEDP 10-15 mmHg Conclusion: 1. Calcified coronary arteries 2. Significant stenosis in the mid RCA 3. Patent stent in the mid and distal RCA with moderate in-stent restenosis with no progression since 2018 4. 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
[2021-07-25] MEDS ORDERED: SODIUM CHLORIDE 0.9% 1,000 ML in EMPTY BAG 1 BAG IV SCH (13:00)
--- NOTE | 2021-07-25 13:00 | P.CARDCATH ---
Date of Procedure: 07/25/21 Description of Procedure: PERCUTANEOUS TRANSLUMINAL CORONARY ANGIOPLASTY CLINICAL INFORMATION: The patient is a 71-year-old male with a known history of coronary artery disease who presented with unstable angina, underwent cardiac catheterization and was found to have critical stenosis in the mid right co ronary artery. Recommendations were made regarding angioplasty and stenting, the procedure and the risk and the complication were discussed with the patient who was in understanding and agreement. PROCEDURE: A 6 Persian 0.75 AL guiding catheter was introduced into the system. After cannulating the right coronary ostium, a 0.014 balanced medium J-wire was advanced across the lesion and positioned distally. Following that a 2.25 x 12 mm NC Treck balloon was advanced and one inflation at 10 piter was done. Following that a 3.0 x 12 mm Xience pina point stent was deployed. It was dilated at 16. After the last inflation, after appropriate wait, the balloon and the guidewire were withdrawn back into the guiding catheter. Images were obtained and repeated. Those images reveal stable successful stenting. At that point, the guiding catheter, the balloon, and guidewire were removed. The sheath was removed. Hemostasis was obtained with deployment of a TR band. There were no immediate complications. The patient was returned to the room in stable condition. Of note, the patient received 7000 units of heparin as well as Plavix. The patient had chest discomfort and EKG changes with the inflations that resolved at the end of the procedure. His ACT was followed. RESULTS: Successful stenting of the mid RCA with reduction of stenosis from 99 % to 0 %. RECOMMENDATIONS: I have recommended continuing Plavix and aspirin for at least 6 months in addition to coronary risks modification and smoking cessation. The findings and recommendations were discussed with the patient and his family and they are in full understanding and agreement. Duration of sedation 58 minutes.
--- NOTE | 2021-07-25 13:38 | ECHOF ---
Referral Reason: MEASUREMENTS -------- HEIGHT: 180.3 cm WEIGHT: 106.1 kg BP: IVSd: 1.2 cm (0.6 - 1.1) LVIDd: 4.8 cm (3.9 - 5.3) LVPWd: 1.3 cm (0.6 - 1.1) IVSs: 1.9 cm LVIDs: 2.6 cm LVPWs: 1.4 cm MV E Teddy: 1.04 m/s MV DecT: 254 ms MV A Teddy: 1.33 m/s MV E/A Ratio: 0.78 FINDINGS -------- Sinus rhythm. This was a technically difficult study with suboptimal views. The left ventricular size is normal. There is mild concentric left ventricular hypertrophy. Overa ll left ventricular systolic function is normal with, an EF between 55 - 60 %. The RV was not well visualized. The left atrium was not well visualized. The right atrium was not well visualized. 5.0mg of Lumason was utilized for enhancement of images Interatrial and interventricular septum intact. The aortic valve was not well visualized. The mitral valve was not well visualized. There is trace mitral regurgitation. The tricuspid valve was not well visualized. The pulmonic valve was not well visualized. The aortic root size is normal. IVC Not well visulized. There is no pericardial effusion. CONCLUSIONS -------- 1. This was a technically difficult study with suboptimal views. 2. There is mild concentric left ventricular hypertrophy. 3. Overall left ventricular systolic function is normal with, an EF between 55 - 60 %. 4. The aortic valve was not well visualized. 5. There is trace mitral regurgitation. 6. There is no pericardial effusion. POT FILLER: Lena Donnelly, [facility]
--- NOTE | 2021-07-25 16:04 | P.HPIM ---
History of Present Illness Chief Complaint: Chest pain Patient is a 71-year-old male with a past medical history significant for coronary disease, essential hypertension, COPD, hyperlipidemia and previous coronary disease that presents to the hospital complaining of chest pain. This apparently began around 3:00 in the morning and has been persistent. He did try to alleviate the pain with nitro which did not take it away completely. Today t he pain approximately at 10 and was associated with shortness of breath however he denies any intractable nausea vomiting. The emergency department he was evaluated and was taken for cardiac catheterization. He underwent cardiac cath one stent was put in. Currently he is chest pain-free not complaining of any shortness of breath, chest pain or palpitations. Lower extremity swelling is very minimal if any. Vital signs are stable patient is normotensive, access was on the left radial. Past Medical History Past Medical History: Chest Pain / Angina, COPD, Hyperlipidemia, Hypertension, Myocardial Infarction (DE), Skin Disorder Additional Past Medical History / Comment(s): psoriasis, arthritis, sob with activity, stents x3 Last Myocardial Infarction Date:: 2003 History of Any Multi-Drug Resistant Organisms: None Reported Past Surgical History: Heart Catheterization With Stent, Tonsillectomy Additional Past Surgical History / Comment(s): parathyroid gland removed Past Anesthesia/Blood Transfusion Reactions: No Reported Reaction Additional Past Anesthesia/Blood Transfusion Reaction / Comment(s): . Date of Last Stent Placement:: 2003 Past Psychological History: No Psychological Hx Reported Smoking Status: Current every day smoker Past Alcohol Use History: None Reported Past Drug Use History: None Reported - Past Family History Sister(s) Family Medical History: CVA/TIA Additional Family Medical History / Comment(s): Mother at 92 secondary to CAD, mother 72, CAD 2 sisters one from CVA, has COPD, one sister alive, with CVA 2 brothers one from COPD, 1 alive with COPD and problems from MVA, 2 daughters 1 with cardiac arrhythmia Father Additional Family Medical History / Comment(s): Father had an enlarged heart. He at age 72 yrs. Mother Family Medical History: No Reported History Additional Family Medical History / Comment(s): Mother at age 82yrs. Medications and Allergies Home Medications Medication Instructions Recorded Confirmed Type Nitroglycerin Sl Tabs [Nitrostat] 0.4 mg SUBLINGUAL Q5M PRN #0 tab 07/26/14 07/25/21 Rx Isosorbide Mononitrate ER [Imdur] 60 mg PO DAILY #30 tab.er.24h 08/07/17 07/25/21 Rx Metoprolol Tartrate [Lopressor] 25 mg PO BID #60 tab 08/07/17 07/25/21 Rx Atorvastatin [Lipitor] 40 mg PO DAILY 07/25/21 07/25/21 History lisinopriL [Zestril] 10 mg PO BID 07/25/21 07/25/21 History Allergies Allergy/AdvReac Type Severity Reaction Status Date / Time No Known Allergies Allergy Verified 07/25/21 10:42 Physical Exam Vitals: Vital Signs Temp Pulse Pulse Pulse Resp BP BP 07/25/21 15:40 97.7 F 99 17 151/87 07/25/21 14:30 88 28 H 140/70 07/25/21 14:00 99 28 H 140/70 07/25/21 13:45 100 28 H 138/74 07/25/21 13:28 100 28 H 142/85 07/25/21 13:13 104 H 28 H 151/93 07/25/21 12:58 104 H 28 H 154/97 07/25/21 11:11 90 07/25/21 10:53 77 07/25/21 09:44 102 H 133/88 07/25/21 09:28 96 28 H Pulse Ox 07/25/21 15:40 97 07/25/21 14:30 98 07/25/21 14:00 98 07/25/21 13:45 98 07/25/21 13:28 98 07/25/21 13:13 97 07/25/21 12:58 97 07/25/21 11:11 07/25/21 10:53 07/25/21 09:44 07/25/21 09:28 95 Intake and Output 07/25/21 07/25/21 07/25/21 06:59 14:59 22:59 Intake Total 100 Output Total 200 Balance -100 Intake: IV 100 Output: Urine 200 Other: Weight 102.058 kg 102.058 kg Gen. patient is awake alert oriented 3 Cardiac normal S1/S2 heard Respiratory no wheezing or rhonchi appreciated Abdomen soft, nontender Extremities no pitting edema noted Psych patient's current spirits. Results CBC & Chem 7: 07/25/21 09:58 07/25/21 09:58 Labs: Abnormal Lab Results - Last 24 Hours (Table) 07/25/21 Range/Units 09:58 BUN 26 H (9-20) mg/dL Glucose 121 H (74-99) mg/dL Assessment and Plan Plan: Assessment: #1 coronary artery disease status post stent #2 essential hypertension #3 hyperlipidemia Plan: -Admit to medicine for close monitoring -Aspiration/fall precaution -Status post cardiac catheterization by cardiology once and placed -Patient has been asked to continue taking aspirin and Plavix -Continue with statin -Risk stratify patient with lipid panel and hemoglobin A1c. -DVT prophylaxis SCDs for today
[2021-07-25] MEDS: METOPROLOL TARTRATE 25 MG TAB PO SCH (20:20)
[2021-07-26] MEDS: SODIUM CHLORIDE 0.9% 1,000 ML in EMPTY BAG 1 BAG IV SCH (03:22)
[2021-07-26] MEDS ORDERED: HEPARIN SODIUM,PORCINE 2,500 UNIT in SODIUM CHLORIDE 0.9% 250 ML IRRIGATION PRN (07:00)
[2021-07-26] MEDS ORDERED: HEPARIN SODIUM,PORCINE 10,000 UNIT in SODIUM CHLORIDE 0.9% 1,000 ML IRRIGATION PRN (07:00)
[2021-07-26 08:07] LABS: HCT 53.4 % (39.0-53.0); HGB 16.6 gm/dL (13.0-17.5); MCH 28.1 pg (25.0-35.0); MCHC 31.1 g/dL (31.0-37.0); MCV 90.5 fL (80.0-100.0); Mean Platelet Volume 8.3; Platelet Count 187 k/uL (150-450); RDW 14.5 % (11.5-15.5); WBC 16.1 k/uL (3.8-10.6)
[2021-07-26 08:21] LABS: African American GFR (CKD) 84 (>60 ml/min/1.73 sqM); Anion Gap 13 mmol/L; Blood Urea Nitrogen 21 mg/dL (9-20); Calcium 9.4 mg/dL (8.4-10.2); Carbon Dioxide 24 mmol/L (22-30); Chloride 104 mmol/L (98-107); Glucose 108 mg/dL (74-99); Non-African American GFR(CKD) 73 (>60 ml/min/1.73 sqM); Potassium 4.5 mmol/L (3.5-5.1); Sodium 141 mmol/L (137-145)
[2021-07-26] MEDS: METOPROLOL TARTRATE 25 MG TAB PO SCH (08:37)
[2021-07-26 08:39] VITALS: RESP 17
[2021-07-26] MEDS ORDERED: ATORVASTATIN 40 MG TAB PO SCH (09:00)
[2021-07-26] MEDS ORDERED: lisinopriL 10 MG TAB PO SCH (09:00)
[2021-07-26] MEDS ORDERED: CLOPIDOGREL 75 MG TAB PO SCH (09:00)
[2021-07-26] MEDS ORDERED: ASPIRIN 81 MG PO SCH ×2 (09:00)
[2021-07-26 10:50] VITALS: BMI 31.4
[2021-07-26 12:18] VITALS: BP 148/79; PULSE 72; TEMP 97.8
--- NOTE | 2021-07-26 16:46 | P.DS ---
Providers Date of admission: 07/25/21 10:50 Expected date of discharge: 07/26/21 Attending physician: Phoebe Marshall, DO Consults: 07/25/21 10:46 Consult Physician Urgent Consulting Provider: Ej Quiles Consult Reason/Comments: chest pain, Do you want consulting provider notified?: Yes 07/25/21 12:50 Consult Physician Routine Consulting Provider: [facility] Consult Reason/Comments: Post Interventional patient Do you want consulting provider notified?: Already Contacted Primary care physician: [facility] Course: Patient is a 71-year-old male with a past medical history significant for coronary disease, essential hypertension, COPD, hyperlipidemia and previous coronary disease that presents to the hospital complaining of chest pain. This apparently began around 3:00 in the morning and has been persistent. He did try to alleviate the pain with nitro which did not take it away completely. Today the pain approximately at 10 and was associated with shortness of breath however he denies any intractable nausea vomiting. In the emergency department he continues to have chest pain. EKG was performed which revealed significant ST depression in V3-V6 and I aVL, new from prior EKGs. The emergency department he was evaluated and was taken for cardiac catheterization. He underwent cardiac cath one stent was put in. Currently he is chest pain-free not complaining of any shortness of breath, chest pain or palpitations. Lower extremity swelling is very minimal if any. Vital signs are stable patient is normotensive, access was on the left radial. Patient is status post successful stenting in the right RCA with reduction of stenosis from 99% to 0%. He was seen and examined on 07/26/2021. He reported no chest pain. He had no complaints and is looking for to going home. He did have an elevated WBC count of 16.1 which is thought to be reactive. He had no signs of active infection. He was cleared for discharge on 07/26/2021 from a cardiology perspective. Cardiology recommended continuing Plavix and aspirin for at least 6 months. He was advised to follow-up with his PCP within 2 days of discharge. He was advised to follow-up with cardiology within 1 week of discharge. He was advised to come back to the ED for worsening chest pain, shortness of breath, palpitations or dizziness. This was explained to the leyda cohen. He verbalized understanding of the plan. This discharge took a total of 45 minutes. General: [non toxic], [no distress], [appears at stated age] Derm: [warm], [dry] Head: [atraumatic], [normocephalic], [symmetric] Eyes: [EOMI], [no lid lag], [anicteric sclera] Mouth: [no lip lesion], [mucus membranes moist] Cardiovascular: [S1S2 reg], [no murmur], [slightly tachycardic] Lungs: [Decreased breath sounds bilaterally bilateral], [no rhonchi, no rales] , [no accessory muscle use] Abdominal: [soft], [ nontender to palpation], [no guarding], [no appreciable organomegaly] Ext: [no gross muscle atrophy], [no edema], [no contractures] Neuro: [no focal neuro deficits] Psych: [Alert], [oriented], [appropriate affect] Discharge diagnosis: #1 coronary artery disease status post stent #2 essential hypertension #3 hyperlipidemia #4 leukocytosis #5 nicotine dependence Procedures: Cardiac catheterization status post stent of RCA Patient Condition at Discharge: Good Plan - Discharge Summary Discharge Rx Participant: No New Discharge Prescriptions: New Aspirin 81 mg PO DAILY Clopidogrel [Plavix] 75 mg PO DAILY #30 tab Continue Nitroglycerin Sl Tabs [Nitrostat] 0.4 mg SUBLINGUAL Q5M PRN #0 tab PRN Reason: Chest Pain Isosorbide Mononitrate ER [Imdur] 60 mg PO DAILY #30 tab.er.24h Metoprolol Tartrate [Lopressor] 25 mg PO BID #60 tab Atorvastatin [Lipitor] 40 mg PO DAILY lisinopriL [Zestril] 10 mg PO BID Discharge Medication List Nitroglycerin Sl Tabs [Nitrostat] 0.4 mg SUBLINGUAL Q5M PRN #0 tab 07/26/14 [Rx] Isosorbide Mononitrate ER [Imdur] 60 mg PO DAILY #30 tab.er.24h 08/07/17 [Rx] Metoprolol Tartrate [Lopressor] 25 mg PO BID #60 tab 08/07/17 [Rx] Atorvastatin [Lipitor] 40 mg PO DAILY 07/25/21 [History] lisinopriL [Zestril] 10 mg PO BID 07/25/21 [History] Aspirin 81 mg PO DAILY 07/26/21 [Rx] Clopidogrel [Plavix] 75 mg PO DAILY #30 tab 07/26/21 [Rx] Follow up Appointment(s)/Referral(s): Ej Quiles MD [STAFF PHYSICIAN] - 1 Week (office closed please call wednesday to schedule) Melanie Oconnor MD [Primary Care Provider] - 1-2 days (office closed please call wednesday to schedule) Patient Instructions/Handouts: Heart Catheterization (DC) Activity/Diet/Wound Care/Special Instructions: Diet: Cardiac Please follow up with your PCP within 1 weeks of discharge. Please follow up with your [employer] [facility] with the appointment given to you. Please take all medications as advised. Come back to the ED or call 911 for worsening chest pain, shortness of breath, dizziness. Discharge Disposition: HOME SELF-CARE
--- NOTE | 2021-07-27 13:45 | P.PN ---
Subjective Progress Note Date: 07/26/21 HISTORY OF PRESENTING ILLNESS This is a pleasant 71-year-old male past medical history significant for cor onary artery disease status post PCI of the mid RCA in 2002, mid RCA in 2013, distal RCA 2014, and mid RCA in 2017, hypertension, dyslipidemia, peripheral vascular disease, chronic nicotine dependence. He follows in the office with Dr. Quiles. We have been asked to see in consultation for chest pain. Patient presents emergency department with worsening left-sided chest pain, radiating to his left arm and left neck. Chest pain started around 2:30AM, it was intermittent at first, relieved by nitro. Chest pain continued and worsened, he felt as if his sublingual nitro was not working. He had associated shortness of breath. In present to the emergency department for further evaluation. In the emergency department he continues to have chest pain. EKG was performed which revealed significant ST depression in V3-V6 and I aVL, new from prior EKGs. DIAGNOSTICS EKG reveals sinus tachycardia, heart rate 100, incomplete right bundle branch block, ST depression in leads V3 through V6, I and aVL. Laboratory reviewed, WBC 8.9, hemoglobin 16, platelets 151, first troponin was negative, sodium 141, potassium 4.6, BUN 26, serum creatinine 1.0, magnesium 1.7 Current home medications include lisinopril 10 mg twice a day, metoprolol titrate 25 mg twice a day, Imdur 60 mg daily, atorvastatin 40 mg daily Most recent echocardiogram 03/2021 in the office revealed an EF of 5560 percent, grade 2 diastolic dysfunction, mild mitral regurgitation, mild tricuspid regurgitation Most recent stress test was in the office 05/29/2021, Lexiscan, revealed fixed inferior and inferoseptal wall and normal gate SPECT images consistent with soft tissue attenuation. 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 Patient underwent PCI to the mid RCA 07/26/2021 Echocardiogram reveals EF of 55-60% with mild concentric left ventricular hypertrophy, trace mitral regurgitation. 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 Patient subsequently underwent successful stenting of the mid RCA. Recommendations to continue Plavix and aspirin for at least 6 months. Patient denies having any chest pain or shortness of breath, no lightheadedness or dizziness. PHYSICAL EXAMINATION CONSTITUTIONAL: No apparent distress. HEENT: Head is normocephalic. Pupils are equal, round. Sclerae anicteric. Mucous membranes of the mouth are moist. No JVD. No carotid bruit. CHEST EXAMINATION: Lungs are diminished in the bases to auscultation. No chest wall tenderness is noted on palpation or with deep breathing. HEART EXAMINATION: Regular rate and rhythm. S1, S2 heard. No murmurs, gallops or rub. ABDOMEN: Soft, nontender. Positive bowel sounds. EXTREMITIES: 2+ peripheral pulses, no lower extremity edema and no calf tenderness. NEUROLOGIC EXAMINATION: Patient is awake, alert and oriented x3. ASSESSMENT Unstable angina status post stent in the mid RCA 07/26 Coronary artery disease status post PCI of the mid RCA in 2002, mid RCA in 2013, distal RCA 2014, and mid RCA in 2017 History of hypertension Dyslipidemia Peripheral vascular disease Chronic nicotine dependence PLAN Continue patient on Imdur, Lopressor, atorvastatin, lisinopril, add aspirin and Plavix Patient is cleared for discharge and follow up with Dr. Quiles in one week Nurse practitioner note has been reviewed by physician. Signing provider agrees with the documented findings, assessment, and plan of care. Objective - Vital Signs Vital signs: Vital Signs Temp 98.1 F 07/26/21 08:00 Pulse 83 07/26/21 08:00 Resp 17 07/26/21 08:00 BP 128/80 07/26/21 08:00 Pulse Ox 93 L 07/26/21 08:00 Intake & Output 07/25/21 07/26/21 07/26/21 18:59 06:59 18:59 Intake Total 100 800 120 Output Total 200 Balance -100 800 120 Weight 102.058 kg 102.058 kg Intake: IV 100 Oral 800 120 Output: Urine 200 Other: Voiding Method Toilet # Voids 5 - Labs CBC & Chem 7: 07/26/21 07:24 07/26/21 07:24 Labs: Abnormal Lab Results - Last 24 Hours (Table) 07/26/21 07/26/21 Range/Units 07:24 07:24 WBC 16.1 H (3.8-10.6) k/uL Hct 53.4 H (39.0-53.0) % BUN 21 H (9-20) mg/dL Glucose 108 H (74-99) mg/dL
== END 2021-07-26 14:58 | disposition home or self-care (01) ==
LOC: EC 09:26 → 6NMEDSUR 10:50 → 3SCARD 12:41
PROVIDERS: ADMIT Internal Medicine; ATTEND Internal Medicine
DX: I25.110 Atherosclerotic heart disease of native coronary artery with unstable angina pectoris (principal); T82.855A Stenosis of coronary artery stent, initial encounter; I11.9 Hypertensive heart disease without heart failure; J44.9 Chronic obstructive pulmonary disease, unspecified; M19.90 Unspecified osteoarthritis, unspecified site; L40.9 Psoriasis, unspecified; I25.2 Old myocardial infarction; F17.200 Nicotine dependence, unspecified, uncomplicated; I73.9 Peripheral vascular disease, unspecified; E78.5 Hyperlipidemia, unspecified; I45.10 Unspecified right bundle-branch block; D72.829 Elevated white blood cell count, unspecified; Z79.899 Other long term (current) drug therapy; Z95.5 Presence of coronary angioplasty implant and graft; Z90.89 Acquired absence of other organs; Z98.890 Other specified postprocedural states; Z82.49 Family history of ischemic heart disease and other diseases of the circulatory system; Z82.5 Family history of asthma and other chronic lower respiratory diseases; Z82.3 Family history of stroke; Z71.6 Tobacco abuse counseling
CPT/HCPCS: 96374; 99285; 36415; 94640; 93005; 93458; 83880; 80061; 80053; 80048; 83735; 84484; 85025; 85027; 85610; 85730; 99152; 99153 ×2; G0378 ×2; C8929; C9600; C1769 ×2; C1887; C1894 ×2; C1725; C1874; J2250; J2930; J2001; J3010; J1644; Q9950; Q9967 ×2; 93306

== ENCOUNTER → 2022-09-15 | Outpatient (CLI) | payer MEDICARE ==
[2022-09-15 22:43] LABS: ALT 31 U/L (10-49); AST 22 U/L (14-35); African American GFR (CKD) 76.2 (60.0-200.0); Albumin 4.2 g/dL (3.8-4.9); Albumin/Globulin Ratio 1.62 (1.60-3.17); Alkaline Phosphatase 100 U/L (41-126); BUN/Creat Ratio 21.91 Ratio (12.00-20.00); Blood Urea Nitrogen 24.1 mg/dL (9.0-27.0); Calcium 9.7 mg/dL (8.7-10.3); Carbon Dioxide 28.7 mmol/L (20.0-27.5); Chloride 100 mmol/L (96-109); Chol/HDL Ratio 3.85 Ratio; Globulin 2.6 g/dL (1.6-3.3); Glucose 95 mg/dL (70-110); LDL Cholesterol,Calculated 50.9 mg/dL (0.0-131.0); Non-African American GFR(CKD) 65.8 (60.0-200.0); Potassium 5.1 mmol/L (3.5-5.5); Sodium 139 mmol/L (135-145); Total Protein 6.8 g/dL (6.2-8.2)
== END | disposition home or self-care (01) ==
LOC: LABWHC1 13:53
PROVIDERS: ATTEND Internal Medicine Interventional Cardiology
DX: E78.2 Mixed hyperlipidemia (principal)
CPT/HCPCS: 36415; 80053; 80061

== ENCOUNTER → 2024-06-23 | Outpatient (CLI) | payer MEDICARE ==
[2024-06-23 18:49] LABS: ALT 27 U/L (10-49); AST 24 U/L (14-35); Albumin 4.1 g/dL (3.8-4.9); Albumin/Globulin Ratio 1.32 Ratio (1.60-3.17); Alkaline Phosphatase 111 U/L (41-126); Calcium 9.3 mg/dL (8.7-10.3); Carbon Dioxide 26.4 mmol/L (21.6-31.8); Chloride 101 mmol/L (96-109); Globulin 3.1 g/dL (1.6-3.3); Glucose 105 mg/dL (70-110); LDL Cholesterol,Calculated 39.8 mg/dL (0.0-131.0); Potassium 4.4 mmol/L (3.5-5.5); Sodium 139 mmol/L (135-145); Total Bilirubin 0.3 mg/dL (0.3-1.2); Total Protein 7.2 g/dL (6.2-8.2)
== END | disposition home or self-care (01) ==
LOC: LABWHC1 13:42
PROVIDERS: ATTEND Nurse Practitioner Adult Health
DX: I10 Essential (primary) hypertension (principal); E78.2 Mixed hyperlipidemia
CPT/HCPCS: 36415; 80053; 80061